=== PATIENT | female | born 1970 | race Caucasian/White ===

== ENCOUNTER → 2019-05-10 | Outpatient (CLI) | payer OTHER | LOC: COL.RAD 09:00 | DX: M43.16 Spondylolisthesis, lumbar region (principal); M89.38 Hypertrophy of bone, other site; M51.26 Other intervertebral disc displacement, lumbar region; M48.061 Spinal stenosis, lumbar region without neurogenic claudication; M47.817 Spondylosis without myelopathy or radiculopathy, lumbosacral region; G89.29 Other chronic pain ==

== ENCOUNTER → 2019-06-26 | Outpatient (CLI) | payer OTHER | LOC: MHCPAIN 14:58 | DX: M53.3 Sacrococcygeal disorders, not elsewhere classified (principal); M17.0 Bilateral primary osteoarthritis of knee | CPT/HCPCS: G0463 ==

== ENCOUNTER 2019-07-26 08:45 | Outpatient (RCR) | payer OTHER | END 2019-12-20 | LOC: WSC | DX: M47.817 Spondylosis without myelopathy or radiculopathy, lumbosacral region (principal); M53.3 Sacrococcygeal disorders, not elsewhere classified; M54.2 Cervicalgia; M25.512 Pain in left shoulder ==